=== PATIENT | female | born 1990 | race Caucasian/White ===

== ENCOUNTER 2017-06-17 00:55 | Inpatient (IN) ==
[2017-06-17] MEDS ORDERED: CARBOPROST 250 MCG/ML INJECTION IM PRN (02:05)
[2017-06-17] MEDS ORDERED: LR 1,000 ML IV PRN (02:05)
[2017-06-17] MEDS ORDERED: MAG-AL + SIM ORAL LIQUID 30ml PO PRN (02:05)
[2017-06-17] MEDS ORDERED: CALCIUM CARBONATE Chewable 500mg TABLET PO PRN (02:05)
[2017-06-17] MEDS ORDERED: METHYLERGONOVINE 0.2 MG/ML INJECTION IM PRN (02:05)
[2017-06-17 02:18] VITALS: BMI 31.4
[2017-06-17] MEDS: OXYTOCIN DRIP 30 UNIT/500 ML ML IV SCH ×2 (04:52→07:38)
[2017-06-17] MEDS ORDERED: DiphenhydrAMINE 25 MG CAPSULE PO PRN (07:32)
[2017-06-17] MEDS ORDERED: HYDROCODONE/APAP 5mg/325mg TABLET PO PRN (07:32)
[2017-06-17] MEDS ORDERED: HYDROCORTISONE 2.5% CREAM 30gm RECTALLY PRN (07:32)
[2017-06-17] MEDS: IBUPROFEN 800 MG TABLET PO PRN ×2 (07:35→15:43)
[2017-06-17] MEDS: ACETAMINOPHEN 500 MG TABLET PO PRN ×2 (08:41→17:50)
[2017-06-17] MEDS: DOCUSATE CALCIUM 240 MG CAPSULE PO SCH (11:55)
--- NOTE | 2017-06-17 13:00 | Labor and Delivery Note ---
DATE OF DELIVERY 06/17/2017 DELIVERY NOTE Cary is a 26-year-old 3, para 1 who presented to [facility] in spontaneous labor. Her membranes were ruptured, returning clear fluids. She progressed nicely throughout labor and rotated baby from OP to OA. She only had to push for two contractions and had a spontaneous vaginal delivery of a viable female , Apgars 9/9, weight 2742 g, name "Denice." The baby was vigorous at delivery, so she was placed on mom's abdomen and the cord clamping was delayed for more than 2 minutes. The placenta delivered spontaneously. She had a second-degree laceration that was repaired after it was injected with local. Mom and baby tolerated the delivery well. YOGI
[2017-06-17 19:14] VITALS: TEMP 98.1
[2017-06-18] MEDS: ACETAMINOPHEN 500 MG TABLET PO PRN (01:47)
[2017-06-18] MEDS: IBUPROFEN 800 MG TABLET PO PRN ×2 (01:47→10:59)
[2017-06-18 04:17] VITALS: BP 128/82; PULSE 82; RESP 16; O2SAT 98
--- NOTE | 2017-06-18 08:17 | OB/GYN Progress Note ---
OB-PP Progress Note - General PPD1 Maternal Group B Strep: Negative Maternal blood type: O+ Maternal Rubella Status: Immune - Subjective Date: 06/18/17 Lochia: Minimal Pain: contolled Pain: Only using ibuprofen and Tylenol. Voiding: voiding - Objective Vital Signs: Last Vital Signs Temp 98.1 F 06/18/17 04:15 Pulse 82 06/18/17 04:15 Resp 16 06/18/17 04:15 BP 128/82 06/18/17 04:15 Pulse Ox 98 06/18/17 04:15 General: alert and oriented Extremities: non-tender - Assessment Assessment: - Plan Plan: routine care, discharge home, continue PNV
[2017-06-18] MEDS: DOCUSATE CALCIUM 240 MG CAPSULE PO SCH (10:59)
== END 2017-06-18 11:45 | disposition home or self-care (01) | DRG 775 ==
LOC: MC 01:24
PROVIDERS: ADMIT Obstetrics & Gynecology; ATTEND Obstetrics & Gynecology